=== PATIENT | female | born 1930 | race Caucasian/White ===

== ENCOUNTER → 2016-08-27 | Outpatient (CLI) | payer OTHER ==
[~2016-08-27] MED LIST: ACET325T96 PO; ACET650S10 PR; ATOR-22 PO; BISA10SU38 PR; CHOL100010 PO; CLIN300C2 PO; CLR10 PO; GABA-113 PO; INSDGI SC; LEVO75TA PO; LEVOXYL; MOML PO; NVLGI SC; OMEP20CA9 PO; PSYL0.524 PO; SODIENE PR; SYSTANE EYE; THERAGRAN M; TRAMADOL
[2016-08-27 09:55] LABS: ESTIMATED AVERAGE GLUCOSE 174 mg/dl; HA1C FLAG Normal (Normal)
[2016-08-27 10:05] LABS: THYROID STIMULATING HORMONE 0.869 uIu/ml (0.300-4.500)
== END ==
LOC: C.LABUPBEA 08:52
PROVIDERS: ATTEND Family Medicine
DX: E11.9 Type 2 diabetes mellitus without complications (principal); E03.9 Hypothyroidism, unspecified

== ENCOUNTER → 2016-09-26 | Outpatient (CLI) | payer OTHER ==
[2016-09-26 05:32] LABS: URINE APPEARANCE CLOUDY (CLEAR); URINE BILIRUBIN NEG (NEG); URINE COLOR YELLOW; URINE EPITHELIAL CELL AUTO 20-30 /lpf (0-5); URINE NITRITE NEG (NEG); URINE SPECIFIC GRAVITY 1.004 (1.000-1.030); UROBILINOGEN NEG (NEG)
[2016-09-26 05:38] LABS: MANUAL MICROSCOPIC REQUIRED? NO; REVIEW REQ? NO
== END ==
LOC: C.LABUPBEA 12:31
PROVIDERS: ATTEND Family Medicine
DX: R82.5 Elevated urine levels of drugs, medicaments and biological substances (principal)

== ENCOUNTER → 2016-09-28 | Outpatient (CLI) | payer OTHER ==
[2016-09-28 12:04] LABS: URINE APPEARANCE CLOUDY (CLEAR); URINE BILIRUBIN NEG (NEG); URINE COLOR YELLOW; URINE EPITHELIAL CELL AUTO >30 /lpf (0-5); URINE NITRITE NEG (NEG); URINE PH 7.5 (4.5-7.5); URINE SPECIFIC GRAVITY 1.012 (1.000-1.030); UROBILINOGEN NEG (NEG)
[2016-09-28 12:18] LABS: MANUAL MICROSCOPIC REQUIRED? NO; REVIEW REQ? YES
== END | disposition home or self-care (01) ==
LOC: C.LABUPBEA 09:01
PROVIDERS: ATTEND Family Medicine
DX: R82.5 Elevated urine levels of drugs, medicaments and biological substances (principal)

== ENCOUNTER → 2016-10-07 | Outpatient (CLI) | payer OTHER ==
[2016-10-07 10:16] LABS: ALT/SGPT 27 U/L (12-78); AST/SGOT 16 U/L (15-37); BLOOD UREA NITROGEN 15 mg/dl (7-18); BUN/CREATININE RATIO 19.6 (10-20); CALCIUM 9.1 mg/dl (8.5-10.1); CARBON DIOXIDE 29 mmol/L (21-32); CHLORIDE 98 mmol/L (98-107); CREATININE 0.76 mg/dl (0.60-1.20); GLUCOSE 132 mg/dl (70-99); POTASSIUM 4.4 mmol/L (3.5-5.1); SODIUM 134 mmol/L (136-145)
[2016-10-07 10:26] LABS: ALB/GLOB RATIO 0.9 (0.9-2); ALKALINE PHOSPHATASE 83 U/L (45-117)
[2016-10-07 11:15] LABS: ESTIMATED AVERAGE GLUCOSE 166 mg/dl; HA1C FLAG Normal (Normal)
--- NOTE | 2016-10-13 08:45 | CODING QUERY MEDICAL NECESSITY ---
SUPPORTING DIAGNOSIS NEEDED A supporting diagnosis is required for the test/procedure performed on this patient in order for us to be reimbursed by the patient's insurance. Please provide a supporting diagnosis for the following test/procedure listed below next to the test name along with your signature. *If there is no additional diagnosis for this patient that would support the following test/procedure please document that below next to the test/procedure. Test(s)/Procedure(s) that require a supporting diagnosis: * VITAMIN D 25-HYDROXY DIAGNOSIS: * DOS: 10/07/16 Provider Signature: Date: Thank you Ambar Dodson [facility] Once completed, please kindly fax back to [phone] For questions please call [phone]
== END ==
LOC: C.LABUPBEA 09:38
PROVIDERS: ATTEND Family Medicine
DX: E11.9 Type 2 diabetes mellitus without complications (principal); E03.9 Hypothyroidism, unspecified; E78.4 Other hyperlipidemia

== ENCOUNTER → 2016-10-14 | Outpatient (CLI) | payer OTHER ==
[2016-10-14 09:18] LABS: ALT/SGPT 20 U/L (12-78); BLOOD UREA NITROGEN 17 mg/dl (7-18); BUN/CREATININE RATIO 21.7 (10-20); CALCIUM 9.1 mg/dl (8.5-10.1); CARBON DIOXIDE 26 mmol/L (21-32); CHLORIDE 99 mmol/L (98-107); CREATININE 0.76 mg/dl (0.60-1.20); GLUCOSE 109 mg/dl (70-99); POTASSIUM 4.5 mmol/L (3.5-5.1); SODIUM 135 mmol/L (136-145)
[2016-10-14 09:21] LABS: ALB/GLOB RATIO 0.9 (0.9-2); ALKALINE PHOSPHATASE 87 U/L (45-117); AST/SGOT 14 U/L (15-37)
== END ==
LOC: C.LABUPBEA 08:55
PROVIDERS: ATTEND Family Medicine
DX: E11.9 Type 2 diabetes mellitus without complications (principal)

== ENCOUNTER → 2016-12-31 | Outpatient (CLI) | payer OTHER ==
--- NOTE | 2017-02-02 08:05 | CODING QUERY MEDICAL NECESSITY ---
SUPPORTING DIAGNOSIS NEEDED A supporting diagnosis is required for the test/procedure performed on this patient in order for us to be reimbursed by the patient's insurance. Please provide a supporting diagnosis for the following test/procedure listed below next to the test name along with your signature. *If there is no additional diagnosis for this patient that would support the following test/procedure please document that below next to the test/procedure. Test(s)/Procedure(s) that require a supporting diagnosis: * VITAMIN D, 25-HYDROXY DIAGNOSIS: Provider Signature: Date: Thank you Micheline Cronin [employer] Information Management Once completed, please kindly fax back to [phone] For questions please call [phone]
== END ==
LOC: C.LABUPBEA 09:10
PROVIDERS: ATTEND Nurse Practitioner Family
DX: E83.40 Disorders of magnesium metabolism, unspecified (principal); E55.9 Vitamin D deficiency, unspecified

== ENCOUNTER → 2017-01-18 | Outpatient (CLI) | payer OTHER ==
[2017-01-18 11:33] LABS: ESTIMATED AVERAGE GLUCOSE 186 mg/dl; HA1C FLAG Normal (Normal)
== END ==
LOC: C.LABUPBEA 09:14
PROVIDERS: ATTEND Nurse Practitioner Family
DX: E11.9 Type 2 diabetes mellitus without complications (principal)

== ENCOUNTER → 2017-01-25 | Outpatient (CLI) | payer OTHER ==
--- NOTE | 2017-02-08 13:55 | CODING QUERY MEDICAL NECESSITY ---
CQSUPPORTING DIAGNOSIS NEEDED A supporting diagnosis is required for the test/procedure performed on this patient in order for us to be reimbursed by the patient's insurance. Please provide a supporting diagnosis for the following test/procedure listed below next to the test name along with your signature. *If there is no additional diagnosis for this patient that would support the following test/procedure please document that below next to the test/procedure. Test(s)/Procedure(s) that require a supporting diagnosis: DOS 01/25/17 VITAMIN D TEST Provider Signature: Date: Thank you Darlene Johnson [facility] Information Management Once completed, please kindly fax back to [phone] For questions please call [phone]
== END | disposition home or self-care (01) ==
LOC: C.LABUPBEA 09:20
PROVIDERS: ATTEND Nurse Practitioner Family
DX: M19.90 Unspecified osteoarthritis, unspecified site (principal); M81.8 Other osteoporosis without current pathological fracture

== ENCOUNTER → 2017-02-08 | Outpatient (CLI) | payer OTHER ==
[2017-02-08 09:23] LABS: ALT/SGPT 19 U/L (12-78); BLOOD UREA NITROGEN 21 mg/dl (7-18); BUN/CREATININE RATIO 24.1 (10-20); CALCIUM 9.7 mg/dl (8.5-10.1); CARBON DIOXIDE 27 mmol/L (21-32); CHLORIDE 104 mmol/L (98-107); CREATININE 0.87 mg/dl (0.60-1.20); GLUCOSE 118 mg/dl (70-99); POTASSIUM 4.9 mmol/L (3.5-5.1); SODIUM 137 mmol/L (136-145)
[2017-02-08 09:26] LABS: ALB/GLOB RATIO 0.8 (0.9-2); ALKALINE PHOSPHATASE 84 U/L (45-117); AST/SGOT 14 U/L (15-37); CHOLESTEROL 226 mg/dl (0-200); CHOLESTEROL/HDL RATIO 6.1; HDL CHOLESTEROL 37 mg/dl; LDL CHOLESTEROL CALCULATED 158 mg/dl; TRIGLYCERIDES 156 mg/dl (0-150); VERY LOW DENSITY LIPOPROT CALC 31 mg/dl
[2017-02-08 09:27] LABS: MEAN CELL VOLUME 87.7 fL (80-100); MEAN CORPUSCULAR HEMOGLOBIN 28.6 pg (25-34); MEAN CORPUSCULAR HGB CONC 32.6 g/dl (32-36); MEAN PLATELET VOLUME 11.2 fL (7.4-10.4); PLATELET COUNT 279 K/uL (130-400); RED BLOOD COUNT 4.79 M/uL (4.2-5.4); WHITE BLOOD COUNT 6.36 K/uL (4.8-10.8)
[2017-02-08 09:34] LABS: ESTIMATED AVERAGE GLUCOSE 186 mg/dl; HA1C FLAG Normal (Normal)
== END ==
LOC: C.LABUPBEA 08:48
PROVIDERS: ATTEND Nurse Practitioner Family
DX: E11.9 Type 2 diabetes mellitus without complications (principal); E78.4 Other hyperlipidemia; I25.10 Atherosclerotic heart disease of native coronary artery without angina pectoris

== ENCOUNTER → 2017-02-24 | Outpatient (CLI) | payer OTHER ==
[2017-02-24 08:56] LABS: THYROID STIMULATING HORMONE 0.235 uIu/ml (0.300-4.500)
[2017-02-24 09:16] LABS: ESTIMATED AVERAGE GLUCOSE 177 mg/dl; HA1C FLAG Normal (Normal)
== END ==
LOC: C.LABUPBEA 08:16
PROVIDERS: ATTEND Family Medicine
DX: E11.9 Type 2 diabetes mellitus without complications (principal); E03.9 Hypothyroidism, unspecified

== ENCOUNTER → 2017-04-01 | Outpatient (CLI) | payer OTHER | LOC: C.LABUPBEA 07:50 | PROVIDERS: ATTEND Nurse Practitioner Family | DX: E03.9 Hypothyroidism, unspecified (principal) ==

== ENCOUNTER → 2017-04-13 | Outpatient (CLI) | payer OTHER | END | disposition home or self-care (01) | LOC: C.LABUPBEA 09:48 | PROVIDERS: ATTEND Nurse Practitioner Family | DX: E78.4 Other hyperlipidemia (principal) ==

== ENCOUNTER → 2017-05-27 | Outpatient (CLI) | payer OTHER ==
[2017-05-27 08:43] LABS: ESTIMATED AVERAGE GLUCOSE 212 mg/dl; HA1C FLAG Normal (Normal)
== END ==
LOC: C.LABUPBEA 08:09
PROVIDERS: ATTEND Nurse Practitioner Family
DX: E11.9 Type 2 diabetes mellitus without complications (principal)

== ENCOUNTER → 2017-06-30 | Outpatient (CLI) | payer OTHER | LOC: C.LABUPBEA 07:57 | PROVIDERS: ATTEND Nurse Practitioner Family | DX: E03.9 Hypothyroidism, unspecified (principal) ==

== ENCOUNTER → 2017-08-17 | Outpatient (CLI) | payer OTHER ==
[2017-08-17 09:07] LABS: HEMOGLOBIN A1C 9.1 % (4.5-5.6)
== END ==
LOC: C.LABUPBEA 08:41
PROVIDERS: ATTEND Nurse Practitioner Family
DX: E11.9 Type 2 diabetes mellitus without complications (principal)

== ENCOUNTER → 2017-08-27 | Outpatient (CLI) | payer OTHER ==
[2017-08-27 08:50] LABS: T4 FREE 0.92 ng/dl (0.80-1.60)
== END | disposition hospice, inpatient (51) ==
LOC: C.LABUPBEA 07:56
DX: E03.9 Hypothyroidism, unspecified (principal)

== ENCOUNTER → 2017-11-09 | Outpatient (CLI) | payer OTHER ==
[~2017-11-09] MED LIST changes: +ACET-1693 PO; -ACET325T96 PO
[2017-11-09 10:33] LABS: HEMOGLOBIN A1C 8.1 % (4.5-5.6)
== END ==
LOC: C.LABUPBEA 08:40
PROVIDERS: ATTEND Nurse Practitioner Family
DX: E11.9 Type 2 diabetes mellitus without complications (principal)

== ENCOUNTER → 2018-02-24 | Outpatient (CLI) | payer OTHER ==
[2018-02-24 09:05] LABS: HEMATOCRIT 39.5 % (37-47); MEAN CELL VOLUME 90.8 fL (80-100); MEAN CORPUSCULAR HEMOGLOBIN 29.9 pg (25-34); MEAN CORPUSCULAR HGB CONC 32.9 g/dl (32-36); MEAN PLATELET VOLUME 12.2 fL (7.4-10.4); PLATELET COUNT 219 K/uL (130-400); RED CELL DISTRIBUTION WIDTH SD 46.3 fL (36.4-46.3); WHITE BLOOD COUNT 6.24 K/uL (4.8-10.8)
[2018-02-24 09:24] LABS: ALBUMIN 3.1 gm/dl (3.4-5.0); ALKALINE PHOSPHATASE 81 U/L (45-117); ALT/SGPT 27 U/L (12-78); AST/SGOT 18 U/L (15-37); BLOOD UREA NITROGEN 20 mg/dl (7-18); CALCIUM 9.3 mg/dl (8.5-10.1); CARBON DIOXIDE 28 mmol/L (21-32); CREATININE 0.84 mg/dl (0.60-1.20); GLUCOSE 132 mg/dl (70-99); POTASSIUM 4.3 mmol/L (3.5-5.1); SODIUM 139 mmol/L (136-145); TOTAL PROTEIN 6.8 gm/dl (6.4-8.2)
== END ==
LOC: C.LABUPBEA 08:39
PROVIDERS: ATTEND Nurse Practitioner Family
DX: E11.9 Type 2 diabetes mellitus without complications (principal); E56.8 Deficiency of other vitamins; E03.9 Hypothyroidism, unspecified